=== PATIENT | male | born 1970 ===

== ENCOUNTER 2017-08-27 07:19 | Day surgery (SDC) | payer MEDICARE ==
[2017-08-27 07:41] VITALS: BMI 30.7
[2017-08-27] MEDS ORDERED: Propofol 10 mg/ml Inj (20 ML) ONE (08:53)
[2017-08-27] MEDS ORDERED: Lidocaine Hydrochloride 5 ML INJ ONE (08:53)
--- NOTE | 2017-08-27 08:55 | CP.SDSHP ---
Same Day Surgery H & P - History Proposed Procedure: EGD Pre-Op Diagnosis: SEE NOTES - Previous Medical/Surgical History Neuro: Seizure Disorder, Other Misc: Other Pain: 6.Severe Pain - Allergies Allergies: Allergies No Known Allergies Allergy (Verified 08/20/17 10:31) - Physical Exam General Appearance: N Vital Signs: Vital Signs 08/27/17 07:48 Temperature 97.8 F Pulse Rate 80 Respiratory 16 Rate Blood Pressure 119/73 O2 Sat by Pulse 98 Oximetry Mental Status: Alert & Oriented x3 Neuro: WNL Heart: WNL Lungs: WNL GI: WNL - {Optional Preform as Required} Breast: WNL Abdomen: Other Rectal: Other Integument: WNL : WNL Ortho: Other ENT: WNL - Impression Pt. Evaluated Today:Candidate for Anesthesia & Procedure: Yes - Date & Time Time: 08:55 Short Stay Discharge - Short Stay Discharge Admitting Diagnosis/Reason for Visit: FUNCTIONAL DYSPEPSIA Disposition: HOME/ ROUTINE
[2017-08-27] MEDS ORDERED: Belladonna-Phenobarbital PO STA (09:03)
[2017-08-27] MEDS ORDERED: Pantoprazole 40 mg EC Tab PO STA (09:04)
[2017-08-27 09:20] VITALS: TEMP 97.3
[2017-08-27 09:26] VITALS: O2SAT 100
[2017-08-27 09:52] VITALS: BP 126/89; PULSE 70; RESP 12
== END 2017-08-27 10:10 | disposition home or self-care (01) ==
LOC: C.ENDO 07:19
PROVIDERS: ATTEND Specialist
DX: K29.80 Duodenitis without bleeding (principal); K44.9 Diaphragmatic hernia without obstruction or gangrene; K29.70 Gastritis, unspecified, without bleeding
CPT/HCPCS: 43239; 88305; 88342; J2704

== ENCOUNTER 2018-04-07 19:03 | Inpatient (IN) | payer MEDICARE ==
[2018-04-07 19:04] VITALS: BMI 30.7
--- NOTE | 2018-04-07 19:56 | C.PDOC ---
History Of Present Illness The patient presents to the ED for evaluation of back pain and fever which began after having a spinal cord stimulator replaced earlier today. Patient was found to be febrile with temperature of 101.5 in the ED. Patient complaining of feeling hot and experiencing discomfort. He denies extremity numbness/weakness. Time Seen by Provider: 04/07/18 19:55 Chief Complaint (Nursing): Back Pain History Per: Patient History/Exam Limitations: no limitations Onset/Duration Of Symptoms: Hrs Current Symptoms Are (Timing): Still Present Quality Of Discomfort: "Pain" Severity: Moderate Pain Scale Rating Of: 4 Previous Symptoms: Back Pain Associated Symptoms: denies: New Weakness, New Numbness Exacerbating Factor(s): Nothing Recent travel outside of the [place]: No Additional History Per: Patient Past Medical History Reviewed: Historical Data, Nursing Documentation, Vital Signs Vital Signs: Last Vital Signs Temp 100.9 F H 04/07/18 21:12 Pulse 75 04/07/18 21:12 Resp 12 04/07/18 21:12 BP 126/77 04/07/18 21:12 Pulse Ox 99 04/07/18 21:12 - Medical History PMH: Anxiety, Back Problems, Bipolar Disorder, Depression, Gall Bladder Disease (CHOLECYSTECTOMY), Kidney Stones (with Lithotripsy), Seizures Denies: Diabetes, Hepatitis, HIV, Chronic Kidney Disease, Sexually Transmitted Disease Surgical History: Back Surgery, Cholecystectomy, Endoscopy - [facility] Procedures EXCISE BONE FOR GFT NEC (04/05/14) EXCISION INTERVERT DISC (04/05/14) FUSION/REFUS OF 2-3 VERTEBRAE (04/05/14) INSERTION OF INTERBODY SPINAL FUSION DEVICE (04/05/14) LUMBAR & LUMBOSACRAL FUSION OF POSTERIOR COL/TECHNIQUE (04/05/14) OCCUPATIONAL THERAPY (04/08/14) PHYSICAL THERAPY NEC (07/13/14) RECREATIONAL THERAPY (04/08/14) SPINAL CANAL EXPLOR NEC (04/22/14) VITAL CAPACITY DETERMIN (04/08/14) Family History: States: No Known Family Hx - Social History Hx Alcohol Use: No Hx Substance Use: No Review Of Systems Constitutional: Positive for: Fever Eyes: Negative for: Redness ENT: Negative for: Throat Pain Cardiovascular: Negative for: Chest Pain, Palpitations Respiratory: Negative for: Cough, Shortness of Breath Gastrointestinal: Negative for: Nausea, Vomiting, Abdominal Pain Musculoskeletal: Positive for: Back Pain Skin: Positive for: Other (incission) Neurological: Negative for: Weakness, Numbness Psych: Negative for: Anxiety Physical Exam - Physical Exam Appears: Non-toxic, No Acute Distress Skin: Warm, Dry Head: Normacephalic Eye(s): bilateral: Normal Inspection Oral Mucosa: Dry Neck: Supple Chest: Symmetrical, No Deformity, No Tenderness Cardiovascular: Rhythm Regular, No Murmur Respiratory: No Rales, No Rhonchi, No Wheezing Gastrointestinal/Abdominal: Bowel Sounds (unremarkable ), Soft, No Tenderness, No Guarding, No Rebound Rectal: Other (incision site to lower thoracic region with minimal amount of bleeding surrouding site ) Extremity: Normal ROM Neurological/Psych: Oriented x3 ED Course And Treatment - Laboratory Results Result Diagrams: 04/07/18 20:25 04/07/18 20:25 O2 Sat by Pulse Oximetry: 100 (on RA) Pulse Ox Interpretation: Normal - Radiology CXR: Interpreted by Me, Viewed By Me CXR Interpretation: No: Infiltrates, Fracture, Pnemothorax Progress Note: Bloodwork, urinalysis, CXR ordered and reviewed. IV Fluids administered. Disposition Discussed With : Homar Aly Comment: accepted the pt on his service and took over the care at 10PM Doctor Will See Patient In The: Hospital Counseled Patient/Family Regarding: Studies Performed, Diagnosis - Disposition Disposition: HOSPITALIZED Disposition Time: 19:56 Condition: FAIR Forms: [facility] (Ecuadorean) - POA Present On Arrival: Surgical Site Infection - Clinical Impression Clinical Impression: Low back pain, Fever, Cellulitis of back - Scribe Statement The provider has reviewed the documentation as recorded by the Scribe (Dayami Trivedi) Provider Attestation: All medical record entries made by the Maria Fernandaibe were at my direction and personally dictated by me. I have reviewed the chart and agree that the record accurately reflects my personal performance of the history, physical exam, medical decision making, and the department course for this patient. I have also personally directed, reviewed, and agree with the discharge instructions and disposition. Decision To Admit - Pt Status Changed To: Hospital Disposition Of: Inpatient - Admit Certification Admit to Inpatient:: After my assessment, the patient will require hospitalization for at least two midnights. This is because of the severity of symptoms shown, intensity of services needed, and/or the medical risk in this patient being treated as an outpatient. - InPatient: Physician Admission Certification:: After my assessment, the patient will require hospitalization for at least two midnights. This is because of the severity of symptoms shown, intensity of services needed, and/or the medical risk in this patient being treated as an outpatient. - . Bed Request Type: Regular Admitting Physician: Homar Aly Patient Diagnosis: Low back pain, Fever, Cellulitis of back
[2018-04-07] MEDS ORDERED: Sodium Chloride 0.9% 1,000 ML IV ONE (20:02)
[2018-04-07] MEDS ORDERED: Sodium Chloride 0.9% 1,000 ML ONE (20:28)
[2018-04-07 20:31] LABS: BASO % 0.3 % (0.0-2.0); HEMOGLOBIN 13.9 g/dL (12.0-18.0); LYMPH % 10.7 % (20.0-40.0); MEAN CELL VOLUME 93.7 fL (80.0-94.0); MEAN CORPUSCULAR HEMOGLOBIN 31.4 pg (27.0-31.0); MEAN CORPUSCULAR HGB CONC 33.5 g/dL (33.0-37.0); MEAN PLATELET VOLUME 7.7 fL (7.2-11.7); MONO # 0.8 K/uL (0.0-0.8); MONO % 8.7 % (0.0-10.0); NEUT # 7.4 K/uL (1.8-7.0); NEUT % 80.3 % (50.0-75.0); RBC 4.42 Mil/uL (4.40-5.90); RED CELL DISTRIBUTION WIDTH 14.2 % (11.5-14.5); WHITE BLOOD COUNT 9.2 K/uL (4.8-10.8)
[2018-04-07 20:33] LABS: VENOUS BLOOD GAS PCO2 49 mmHg (40-60); VENOUS BLOOD GAS PO2 18 mm/Hg (30-55); VENOUS BLOOD PH 7.38 (7.32-7.43)
[2018-04-07 20:44] LABS: ALB/GLOB RATIO 1.3 (1.0-2.1); ALBUMIN 4.1 g/dL (3.5-5.0); ALT/SGPT 76 U/L (21-72); AST/SGOT 79 U/L (17-59); BLOOD UREA NITROGEN 8 mg/dL (9-20); CALCIUM 8.7 mg/dl (8.6-10.4); GFR AFRICAN-AMERICAN > 60; GFR NON-AFRICAN AMERICAN > 60
[2018-04-07 21:21] LABS: PROTHROMBIN TIME 11.2 SECONDS (9.7-12.2)
[2018-04-07 21:33] LABS: URINE BILIRUBIN NEGATIVE (NEGATIVE); URINE BLOOD NEGATIVE (NEGATIVE); URINE CLARITY Clear (Clear); URINE COLOR Yellow (YELLOW); URINE GLUCOSE (UA) NORMAL (Normal); URINE LEUKOCYTE ESTERASE NEG Leu/uL (Negative); URINE PROTEIN NEGATIVE (NEGATIVE); URINE UROBILINOGEN NORMAL mg/dL (0.2-1.0)
[2018-04-07] MEDS ORDERED: Piperacillin/Tazobact 3.375 GM in Sodium Chloride 100 ML IVPB SCH (22:15)
[2018-04-07] MEDS ORDERED: Home Med 1 UNIT (Oxycodone Hcl/Acetaminophen [Percocet 10-325 Mg Tablet] 1 EACH) PO PRN (22:21)
[2018-04-07] MEDS ORDERED: TRAZODONE HCL 150 MG PO SCH (22:30)
[2018-04-07] MEDS ORDERED: Home Med 1 UNIT (Zolpidem [Ambien] 10 MG) PO SCH (22:30)
[2018-04-07] MEDS ORDERED: LEVETIRACETAM 1000 MG PO SCH (22:30)
[2018-04-07] MEDS ORDERED: QUETIAPINE FUMARATE 400 MG PO SCH (22:30)
[2018-04-07] MEDS ORDERED: Vancomycin 1 gm/NS 200 ml 1 GM/200 ML BAG IVPB SCH (23:15)
[2018-04-08] MEDS: Vancomycin 1 gm/NS 200 ml 1 GM/200 ML BAG IVPB SCH ×4 (01:00→22:55)
[2018-04-08] MEDS: Piperacill/Tazo 3.375gm in Dex 3.375 GM/50 ML BAG IVPB SCH ×4 (05:20→22:59)
[2018-04-08] MEDS ORDERED: Oxycodone/Acetaminophen 5/325 mg Tab PO ONE ×2 (05:33→05:35)
[2018-04-08 08:23] LABS: BASO % 0.1 % (0.0-2.0); EOS % 0.1 % (0.0-4.0); HEMOGLOBIN 12.4 g/dL (12.0-18.0); LYMPH # 1.1 K/uL (1.0-4.3); LYMPH % 17.7 % (20.0-40.0); MEAN CELL VOLUME 93.7 fL (80.0-94.0); MEAN CORPUSCULAR HEMOGLOBIN 32.2 pg (27.0-31.0); MEAN CORPUSCULAR HGB CONC 34.4 g/dL (33.0-37.0); MEAN PLATELET VOLUME 8.2 fL (7.2-11.7); MONO # 0.7 K/uL (0.0-0.8); MONO % 12.4 % (0.0-10.0); NEUT # 4.2 K/uL (1.8-7.0); NEUT % 69.7 % (50.0-75.0); RBC 3.84 Mil/uL (4.40-5.90); RED CELL DISTRIBUTION WIDTH 14.4 % (11.5-14.5)
[2018-04-08 08:47] LABS: ALB/GLOB RATIO 1.1 (1.0-2.1); ALBUMIN 3.2 g/dL (3.5-5.0); ALT/SGPT 57 U/L (21-72); AST/SGOT 40 U/L (17-59); BLOOD UREA NITROGEN 5 mg/dL (9-20); GFR AFRICAN-AMERICAN > 60; GFR NON-AFRICAN AMERICAN > 60
[2018-04-08] MEDS ORDERED: Home Med 1 UNIT (Alprazolam [Xanax] 2 MG) PO SCH (10:00)
[2018-04-08] MEDS: oxyCODONE 5 mg Immediate Release Tab PO PRN (10:36)
[2018-04-08] MEDS: Pantoprazole 40 mg EC Tab PO SCH (10:38)
[2018-04-08] MEDS: Oxycodone/Acetaminophen 5/325 mg Tab PO PRN (10:38)
--- NOTE | 2018-04-08 10:55 | CP.PCM.CON ---
History of Present Illness - History of Present Illness History of Present Illness: The patient presents to the ED for evaluation of back pain and fever which began after having a spinal cord stimulator replaced yesterday as out patient . Patient was found to be febrile with temperature of 101.5 in the ED. Patient complaining of feeling hot and experiencing discomfort. He denies extremity numbness/weakness. Review of Systems - Review of Systems All systems: reviewed and no additional remarkable complaints except - Constitutional Constitutional: As Per HPI - EENT Eyes: absent: As Per HPI, Blind Spots, Blurred Vision, Change in Vision, Decreased Night Vision, Diplopia, Discharge, Dry Eye, Exophthalmos, Floaters, Irritation, Itchy Eyes, Loss of Peripheral Vision, Pain, Photophobia, Requires Corrective Lenses, Sees Flashes, Spots in Vision, Tunnel Vision, Other Visual Disturbances, Loss of Vision, Other Ears: absent: As Per HPI, Decreased Hearing, Ear Discharge, Ear Pain, Tinnitus, Abnormal Hearing, Disequilibrium, Dizziness, Other Nose/Mouth/Throat: absent: As Per HPI, Epistaxis, Nasal Congestion, Nasal Discharge, Nasal Obstruction, Nasal Trauma, Nose Pain, Post Nasal Drip, Sinus Pain, Sinus Pressure, Bleeding Gums, Change in Voice, Dental Pain, Dry Mouth, Dysphagia, Halitosis, Hoarsness, Lip Swelling, Mouth Lesions, Mouth Pain, Odynophagia, Sore Throat, Throat Swelling, Tongue Swelling, Facial Pain, Neck Pain, Neck Mass, Other - Cardiovascular Cardiovascular: absent: As Per HPI, Acrocyanosis, Chest Pain, Chest Pain at Rest , Chest Pain with Activity, Claudication, Diaphoresis, Dyspnea, Dyspnea on Exertion, Edema, Irregular Heart Rhythm, Pain Radiating to Arm/Neck/Jaw, Leg Edema, Leg Ulcers, Lightheadedness, Orthopnea, Palpitations, Paroxysmal Nocturnal Dyspnea, Pedal Edema, Radiating Pain, Rapid Heart Rate, Slow Heart Rate, Syncope, Other - Respiratory Respiratory: absent: As Per HPI, Cough, Dyspnea, Hemoptysis, Dyspnea on Exertion , Wheezing, Snoring, Stridor, Pain on Inspiration, Chest Congestion, Excessive Mucous Production, Change in Mucous Color, Pain with Coughing, Other - Gastrointestinal Gastrointestinal: absent: As Per HPI, Abdominal Pain, Belching, Bloating, Change in Bowel Habits, Change in Stool Character, Coffee Ground Emesis, Constipation, Cramping, Diarrhea, Dyspepsia, Dysphagia, Early Satiety, Excessive Flatus, Fecal Incontinence, Heartburn, Hematemesis, Hematochezia, Loose Stools, Melena, Nausea, Odynophagia, Temesmus, Vomiting, Other - Genitourinary Genitourinary: absent: As Per HPI, Change in Urinary Stream, Difficulty Urinating, Dysuria, Flank Pain, Hematuria, Pyuria, Nocturia, Urinary Incontinence, Urinary Frequency, Urinary Hesitance, Urinary Urgency, Voiding Freq/Small Amts, Freq UTI, Hx Renal/Bladder Calculi, Hx /Renal Surgery, Bladder Distension, Other - Musculoskeletal Musculoskeletal: As Per HPI - Integumentary Integumentary: As Per HPI - Neurological Neurological: As Per HPI - Psychiatric Psychiatric: absent: As Per HPI, Abnormal Sleep Pattern, Anhedonia, Anxiety, Auditory Hallucinations, Behavioral Changes, Change in Appetite, Change in Libido, Confusion, Depression, Difficulty Concentrating, Hallucinations, Homicidal Ideation, Hopelessness, Irritability, Memory Loss, Mood Swings, Panic Attacks, Paranoia, Suicidal Ideation, Visual Hallucinations, Tactile Hallucinations, Other - Endocrine Endocrine: absent: As Per HPI, Change in Body Appearance, Change in Libido, Cold Intolorance, Deepening of Voice, Excessive Sweating, Fatigue, Flushing, Heat Intolorance, Increase in Ring/Shoe/Hat Size, Palpitations, Polydipsia, Polyphagia, Polyuria, Other - Hematologic/Lymphatic Hematologic: absent: As Per HPI, Easy Bleeding, Easy Bruising, Lymphadenopathy, Other Past Patient History - Past Medical History & Family History Past Medical History?: Yes - Past Social History Smoking Status: n - CARDIAC Hx Cardiac Disorders: No - PULMONARY Hx Respiratory Disorders: No - NEUROLOGICAL Hx Neurological Disorder: Yes Hx Seizures: Yes - HEENT Hx HEENT Problems: No - RENAL Hx Chronic Kidney Disease: No Hx Kidney Stones: Yes (with Lithotripsy) - ENDOCRINE/METABOLIC Hx Endocrine Disorders: No - HEMATOLOGICAL/ONCOLOGICAL Hx Blood Disorders: No Hx Human Immunodeficiency Virus (HIV): No - INTEGUMENTARY Hx Dermatological Problems: No - MUSCULOSKELETAL/RHEUMATOLOGICAL Hx Musculoskeletal Disorders: Yes Hx Back Pain: Yes (SPINAL FUSION & SPINAL CORD STIMULATOR, CONTINUOS WITH MEDS) Hx Falls: No - GASTROINTESTINAL Hx Gastrointestinal Disorders: Yes Hx Gall Bladder Disease: Yes (CHOLECYSTECTOMY) - GENITOURINARY/GYNECOLOGICAL Hx Genitourinary Disorders: No Hx Sexually Transmitted Disorders: No - PSYCHIATRIC Hx Psychophysiologic Disorder: Yes Hx Anxiety: Yes Hx Bipolar Disorder: Yes Hx Depression: Yes Hx Substance Use: No - SURGICAL HISTORY Hx Surgeries: Yes Hx Cholecystectomy: Yes Other/Comment: Spinal fusion and spinal cord stimulator - ANESTHESIA Hx Anesthesia: Yes Hx Anesthesia Reactions: No Hx Malignant Hyperthermia: No Meds Allergies/Adverse Reactions: Allergies Allergy/AdvReac Type Severity Reaction Status Date / Time No Known Allergies Allergy Verified 08/20/17 10:31 - Medications Medications: Current Medications Acetaminophen (Tylenol 325mg Tab) 650 mg PO Q6 PRN PRN Reason: Temperature Last Admin: 04/08/18 03:57 Dose: 650 mg Alprazolam (Xanax) 2 mg PO TID [facility] Last Admin: 04/08/18 10:35 Dose: 2 mg Piperacillin Sod/Tazobactam Sod (Zosyn 3.375 Gm Iv Premix) 3.375 gm in 50 mls @ 100 mls/hr IVPB Q6H BHAVNA PRN Reason: Protocol Last Admin: 04/08/18 05:20 Dose: 100 mls/hr Cefepime HCl 1 gm/ Dextrose 50 mls @ 100 mls/hr IVPB Q12H BHAVNA PRN Reason: Protocol Last Admin: 04/08/18 00:30 Dose: 100 mls/hr Vancomycin/Sodium Chloride (Vancomycin 1 Gm/Ns 200 Ml) 1 gm in 200 mls @ 133.333 mls/hr IVPB Q8 BHAVNA PRN Reason: Protocol Stop: 04/13/18 06:01 Last Admin: 04/08/18 05:20 Dose: 133.333 mls/hr Levetiracetam (Keppra) 1,000 mg PO BID [facility] Last Admin: 04/08/18 10:39 Dose: 1,000 mg Oxycodone HCl (Oxycodone Immediate Release Tab) 5 mg PO Q8 PRN PRN Reason: Pain, moderate (4-7) Last Admin: 04/08/18 10:36 Dose: 5 mg Oxycodone/Acetaminophen (Percocet 5/325 Mg Tab) 1 tab PO Q8 PRN PRN Reason: Pain, moderate (4-7) Last Admin: 04/08/18 10:38 Dose: 1 tab Pantoprazole Sodium (Protonix Ec Tab) 40 mg PO DAILY [facility] Last Admin: 04/08/18 10:38 Dose: 40 mg Phenytoin Sodium (Dilantin) 200 mg PO BID [facility] Last Admin: 04/08/18 10:39 Dose: 200 mg Quetiapine Fumarate (Seroquel) 400 mg PO BID [facility] Last Admin: 04/08/18 10:36 Dose: 400 mg Trazodone HCl (Desyrel) 150 mg PO [facility] Last Admin: 04/08/18 02:04 Dose: 150 mg Zolpidem Tartrate (Ambien) 10 mg PO [facility] Physical Exam - Constitutional Appears: Non-toxic, Chronically Ill - Head Exam Head Exam: ATRAUMATIC, NORMAL INSPECTION, NORMOCEPHALIC - Eye Exam Eye Exam: EOMI, PERRL. absent: Scleral icterus - ENT Exam ENT Exam: Mucous Membranes Dry - Neck Exam Neck exam: Negative for: Lymphadenopathy - Respiratory Exam Respiratory Exam: Decreased Breath Sounds, Clear to Auscultation Bilateral - Cardiovascular Exam Cardiovascular Exam: REGULAR RHYTHM, +S1, +S2 - GI/Abdominal Exam GI & Abdominal Exam: Diminished Bowel Sounds, Soft. absent: Tenderness - Rectal Exam Rectal Exam: Deferred - Exam Exam: NORMAL INSPECTION - Extremities Exam Extremities exam: Negative for: pedal edema - Back Exam Back exam: absent: CVA tenderness (L), CVA tenderness (R) - Neurological Exam Neurological exam: Alert, CN II-XII Intact, Oriented x3, Reflexes Normal - Psychiatric Exam Psychiatric exam: Depressed, Normal Mood - Skin Skin Exam: Dry, Intact Results - Vital Signs Recent Vital Signs: Last Vital Signs Temp 98.8 F 04/08/18 07:40 Pulse 80 04/08/18 07:40 Resp 20 04/08/18 07:40 BP 110/72 04/08/18 07:40 Pulse Ox 96 04/08/18 07:40 - Labs Result Diagrams: 04/08/18 08:05 04/08/18 08:05 Labs: Laboratory Results - last 24 hr 04/07/18 04/07/18 04/07/18 20:25 20:25 20:25 WBC 9.2 RBC 4.42 Hgb 13.9 Hct 41.4 MCV 93.7 MCH 31.4 H MCHC 33.5 RDW 14.2 Plt Count 242 MPV 7.7 Neut % (Auto) 80.3 H Lymph % (Auto) 10.7 L [place] % (Auto) 8.7 Eos % (Auto) 0.0 Baso % (Auto) 0.3 Neut # (Auto) 7.4 H Lymph # (Auto) 1.0 [place] # (Auto) 0.8 Eos # (Auto) 0.0 Baso # (Auto) 0.0 PT 11.2 INR 1.0 APTT 29 pO2 VBG pH VBG pCO2 VBG HCO3 VBG Total CO2 VBG O2 Sat (Calc) VBG Base Excess VBG Potassium Glucose Lactate Sodium 139 Potassium 4.0 Chloride 100 Carbon Dioxide 31 H Anion Gap 13 BUN 8 L Creatinine 0.7 L Est GFR ( Amer) > 60 Est GFR (Non-Af Amer) > 60 Random Glucose 102 Calcium 8.7 Magnesium 1.5 L Total Bilirubin 1.0 AST 79 H D ALT 76 H Alkaline Phosphatase 82 Total Protein 7.2 Albumin 4.1 Globulin 3.2 Albumin/Globulin Ratio 1.3 Venous Blood Potassium Urine Color Urine Clarity Urine pH Ur Specific [place] Urine Protein Urine Glucose (UA) Urine Ketones Urine Blood Urine Nitrate Urine Bilirubin Urine Urobilinogen Ur Leukocyte Esterase Urine WBC (Auto) Urine RBC (Auto) 04/07/18 04/07/18 04/08/18 20:29 21:17 08:05 WBC 6.0 RBC 3.84 L Hgb 12.4 Hct 36.0 MCV 93.7 MCH 32.2 H MCHC 34.4 RDW 14.4 Plt Count 227 MPV 8.2 Neut % (Auto) 69.7 Lymph % (Auto) 17.7 L [place] % (Auto) 12.4 H Eos % (Auto) 0.1 Baso % (Auto) 0.1 Neut # (Auto) 4.2 Lymph # (Auto) 1.1 [place] # (Auto) 0.7 Eos # (Auto) 0.0 Baso # (Auto) 0.0 PT INR APTT pO2 18 L VBG pH 7.38 VBG pCO2 49 VBG HCO3 25.3 VBG Total CO2 30.5 H VBG O2 Sat (Calc) 32.9 L VBG Base Excess 3.0 H VBG Potassium 5.1 Glucose 90 Lactate 2.0 Sodium 138.0 Potassium Chloride 105.0 Carbon Dioxide Anion Gap BUN Creatinine Est GFR ( Amer) Est GFR (Non-Af Amer) Random Glucose Calcium Magnesium Total Bilirubin AST ALT Alkaline Phosphatase Total Protein Albumin Globulin Albumin/Globulin Ratio Venous Blood Potassium 5.1 Urine Color Yellow Urine Clarity Clear Urine pH 6.0 Ur Specific [place] 1.021 Urine Protein Negative Urine Glucose (UA) Normal Urine Ketones Negative Urine Blood Negative Urine Nitrate Negative Urine Bilirubin Negative Urine Urobilinogen Normal Ur Leukocyte Esterase Neg Urine WBC (Auto) 1 Urine RBC (Auto) < 1 04/08/18 08:05 WBC RBC Hgb Hct MCV MCH MCHC RDW Plt Count MPV Neut % (Auto) Lymph % (Auto) [place] % (Auto) Eos % (Auto) Baso % (Auto) Neut # (Auto) Lymph # (Auto) [place] # (Auto) Eos # (Auto) Baso # (Auto) PT INR APTT pO2 VBG pH VBG pCO2 VBG HCO3 VBG Total CO2 VBG O2 Sat (Calc) VBG Base Excess VBG Potassium Glucose Lactate Sodium 137 Potassium 3.3 L Chloride 103 Carbon Dioxide 28 Anion Gap 10 BUN 5 L Creatinine 0.7 L Est GFR ( Amer) > 60 Est GFR (Non-Af Amer) > 60 Random Glucose 104 Calcium 8.0 L Magnesium Total Bilirubin 0.9 AST 40 ALT 57 Alkaline Phosphatase 68 Total Protein 6.1 L Albumin 3.2 L D Globulin 2.9 Albumin/Globulin Ratio 1.1 Venous Blood Potassium Urine Color Urine Clarity Urine pH Ur Specific [place] Urine Protein Urine Glucose (UA) Urine Ketones Urine Blood Urine Nitrate Urine Bilirubin Urine Urobilinogen Ur Leukocyte Esterase Urine WBC (Auto) Urine RBC (Auto) Assessment & Plan (1) Cellulitis of back Status: Acute (2) Fever Status: Acute (3) Low back pain Status: Acute - Assessment and Plan (Free Text) Assessment: fever and headache s/p nerve stimulator placement recc eval by surgeon ELLEN consider LP wound care consult IV antibiotics to cover [employer]
--- NOTE | 2018-04-08 11:56 | RAD ---
PROCEDURE: CHEST RADIOGRAPH, 1 VIEW HISTORY: SOB COMPARISON: None available. FINDINGS: LUNGS: Clear. PLEURA: No pneumothorax or pleural fluid seen. CARDIOVASCULAR: No radiographic findings to suggest acute or significant cardiovascular disease. OSSEOUS STRUCTURES: No significant abnormalities. VISUALIZED UPPER ABDOMEN: Normal. OTHER FINDINGS: Incompletely visualized stimulator device IMPRESSION: No active disease. Concordant results with the preliminary interpretation rendered by the emergency department physician procedure.
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
[2018-04-08] MEDS ORDERED: Cefepime IV 2 gm in Dextrose 2 GM/100 ML BAG IVPB SCH (13:00)
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
[2018-04-08] MEDS: Cefepime IV 2 gm in Dextrose 2 GM/100 ML BAG IVPB SCH (16:52)
[2018-04-08] MEDS ORDERED: Oxycodone/Acetaminophen 5/325 mg Tab PO STA (18:16)
[2018-04-08] MEDS: Dextrose 5%/0.45% NS 1,000 ML IV SCH (18:24)
[2018-04-09] MEDS ORDERED: Potassium Chloride 20 mEq ER Tab PO ONE ×2 (00:36→23:51)
[2018-04-09] MEDS: Cefepime IV 2 gm in Dextrose 2 GM/100 ML BAG IVPB SCH ×3 (00:59→16:31)
[2018-04-09] MEDS: Oxycodone/Acetaminophen 5/325 mg Tab PO PRN ×3 (01:55→16:25)
[2018-04-09] MEDS: Piperacill/Tazo 3.375gm in Dex 3.375 GM/50 ML BAG IVPB SCH ×2 (04:30→11:55)
[2018-04-09 06:29] LABS: ALBUMIN 3.1 g/dL (3.5-5.0); ALT/SGPT 34 U/L (21-72); AST/SGOT 30 U/L (17-59); BLOOD UREA NITROGEN 8 mg/dL (9-20); CALCIUM 7.9 mg/dl (8.6-10.4); GFR AFRICAN-AMERICAN > 60; GFR NON-AFRICAN AMERICAN > 60
[2018-04-09] MEDS: Vancomycin 1 gm/NS 200 ml 1 GM/200 ML BAG IVPB SCH ×3 (06:55→22:02)
--- NOTE | 2018-04-09 07:10 | CP.PCM.PN ---
Subjective - Date & Time of Evaluation Date of Evaluation: 04/09/18 Time of Evaluation: 09:05 - Subjective Subjective: PGY 3 Med Note- Dr. Aly's service Patient seen and examined in no apparent acute distress. Patient states that he still has back pain associated with the procedure. He states that he has decreased strength on his right side; however so, notes that this is not a new occurrence. Objective - Vital Signs/Intake and Output Vital Signs (last 24 hours): Temp Pulse Resp BP Pulse Ox 98.5 F 82 18 96/60 L 96 04/09/18 04:00 04/09/18 04:00 04/09/18 04:00 04/09/18 04:00 04/09/18 04:00 Intake and Output: 04/09/18 04/09/18 06:59 18:59 Intake Total 1200 Balance 1200 - Medications Medications: Current Medications Acetaminophen (Tylenol 325mg Tab) 650 mg PO Q6 PRN PRN Reason: Temperature Last Admin: 04/08/18 03:57 Dose: 650 mg Alprazolam (Xanax) 2 mg PO TID [facility] Last Admin: 04/08/18 18:07 Dose: 2 mg Piperacillin Sod/Tazobactam Sod (Zosyn 3.375 Gm Iv Premix) 3.375 gm in 50 mls @ 100 mls/hr IVPB Q6H BHAVNA PRN Reason: Protocol Last Admin: 04/09/18 04:30 Dose: 100 mls/hr Vancomycin/Sodium Chloride (Vancomycin 1 Gm/Ns 200 Ml) 1 gm in 200 mls @ 133.333 mls/hr IVPB Q8 BHAVNA PRN Reason: Protocol Stop: 04/13/18 06:01 Last Admin: 04/08/18 22:55 Dose: 133.333 mls/hr Cefepime HCl (Maxipime Iv 2 Gm Premix) 2 gm in 100 mls @ 200 mls/hr IVPB Q8H BHAVNA PRN Reason: Protocol Stop: 04/13/18 16:01 Last Admin: 04/09/18 00:59 Dose: 200 mls/hr Dextrose/Sodium Chloride (Dextrose 5%/0.45% Ns 1000 Ml) 1,000 mls @ 100 mls/hr IV .Q10H [facility] Last Admin: 04/08/18 18:24 Dose: 100 mls/hr Levetiracetam (Keppra) 1,000 mg PO BID [facility] Last Admin: 04/08/18 18:05 Dose: 1,000 mg Oxycodone HCl (Oxycodone Immediate Release Tab) 5 mg PO Q8 PRN PRN Reason: Pain, moderate (4-7) Last Admin: 04/08/18 10:36 Dose: 5 mg Oxycodone/Acetaminophen (Percocet 5/325 Mg Tab) 1 tab PO Q8 PRN PRN Reason: Pain, moderate (4-7) Last Admin: 04/09/18 01:55 Dose: 1 tab Pantoprazole Sodium (Protonix Ec Tab) 40 mg PO DAILY [facility] Last Admin: 04/08/18 10:38 Dose: 40 mg Phenytoin Sodium (Dilantin) 200 mg PO BID [facility] Last Admin: 04/08/18 18:05 Dose: 200 mg Quetiapine Fumarate (Seroquel) 400 mg PO BID [facility] Last Admin: 04/08/18 18:07 Dose: 400 mg Trazodone HCl (Desyrel) 150 mg PO HS [facility] Last Admin: 04/08/18 22:55 Dose: 150 mg Zolpidem Tartrate (Ambien) 5 mg PO HS PRN PRN Reason: Insomnia - Labs Labs: 04/08/18 08:05 04/09/18 06:08 PT 11.2 SECONDS (9.7-12.2) 04/07/18 20:25 INR 1.0 04/07/18 20:25 APTT 29 SECONDS (21-34) 04/07/18 20:25 - Constitutional Appears: Non-toxic, No Acute Distress - Head Exam Head Exam: ATRAUMATIC, NORMAL INSPECTION - Eye Exam Eye Exam: EOMI - ENT Exam ENT Exam: Mucous Membranes Moist - Respiratory Exam Respiratory Exam: NORMAL BREATHING PATTERN - Cardiovascular Exam Cardiovascular Exam: REGULAR RHYTHM, +S1, +S2 - GI/Abdominal Exam GI & Abdominal Exam: Soft, Normal Bowel Sounds - Extremities Exam Extremities Exam: Normal Capillary Refill. absent: Pedal Edema Additional comments: dec abduction of the right lower extremity - Neurological Exam Neurological Exam: Alert, Awake Neuro motor strength exam: Left Upper Extremity: 5, Right Upper Extremity: 5, Left Lower Extremity: 5, Right Lower Extremity: 4 - Psychiatric Exam Psychiatric exam: Normal Affect, Normal Mood - Skin Skin Exam: Dry, Normal Color, Warm Assessment and Plan - Assessment and Plan (Free Text) Assessment: CSF leak Patient POD#2 s/p nerve stimulator exchange with Dr. Noel Per attending's discussion with Dr. Noel, patient likely had CSF leak and bed rest recommended Pt seen by ID, Dr. Marr, to cover with zosyn, cefepime, vancomycin for CORE STICKER infection Florastor on board Chronic low back pain Patient has had multiple surgeries in the past Pt takes Percocet 10/325 at home- non-formulary here continue equivalent percocet 5/325 + oxycodone 5mg Epilepsy Continue home meds: keppra 1000mg PO BID, dilantin 200mg PO BID Bipolar disorder Continue home med seroquel 400mg PO BID Anxiety Continue home med xanax 2mg PO TID Trazodone 150mg PO HS Insomnia Ambien 5mg PO HS prn Prophylactic measure PPI daily Chemical anticoagulation and SCDs contraindicated in light of recent spinal surgery Discussed with attending. All medical management as per Dr. Aly
[2018-04-09 07:32] LABS: BASO % 0.3 % (0.0-2.0); EOS % 0.6 % (0.0-4.0); HEMOGLOBIN 12.9 g/dL (12.0-18.0); LYMPH # 1.1 K/uL (1.0-4.3); LYMPH % 17.8 % (20.0-40.0); MEAN CELL VOLUME 94.7 fL (80.0-94.0); MEAN CORPUSCULAR HEMOGLOBIN 32.4 pg (27.0-31.0); MEAN CORPUSCULAR HGB CONC 34.3 g/dL (33.0-37.0); MEAN PLATELET VOLUME 8.1 fL (7.2-11.7); MONO # 0.8 K/uL (0.0-0.8); NEUT # 4.3 K/uL (1.8-7.0); NEUT % 68.3 % (50.0-75.0); NRBC % 0.1 % (0.0-2.0); RBC 3.97 Mil/uL (4.40-5.90); RED CELL DISTRIBUTION WIDTH 14.3 % (11.5-14.5); WHITE BLOOD COUNT 6.3 K/uL (4.8-10.8)
[2018-04-09 08:31] VITALS: RESP 20
[2018-04-09] MEDS: oxyCODONE 5 mg Immediate Release Tab PO PRN ×2 (08:31→16:12)
[2018-04-09] MEDS: Saccharomyces Boulardi 250 mg Cap PO SCH ×2 (10:08→19:18)
[2018-04-09] MEDS: Pantoprazole 40 mg EC Tab PO SCH (10:09)
--- NOTE | 2018-04-09 10:25 | HP ---
HISTORY OF PRESENT ILLNESS: The patient is a 47-year-old male with complaint of back pain, status post multiple surgeries and spinal cord stimulator which was removed from [facility] . The patient came with headache, fever. Patient came to the ER and advised admission. The patient has history of bypass surgery, history of multiple abdominal surgeries . PHYSICAL EXAMINATION: GENERAL: The patient is awake, alert, and oriented. VITAL SIGNS: Temperature 98, pulse 90. HEENT: Within normal limits. NECK: Supple. CHEST: Symmetrical. HEART: Regular. ABDOMEN: Soft. EXTREMITIES: No edema. IMPRESSION: . Patient suffers from spinal cord stimulator, fever, ____, cellulitis. The patient is on IV antibiotics, Infectious Disease consult. Call was made to Dr. Noel pain medicine doctor to discuss with him the case, exact procedure done. Homar Aly MD
--- NOTE | 2018-04-09 13:42 | CP.PCM.PN ---
Subjective - Date & Time of Evaluation Date of Evaluation: 04/09/18 Time of Evaluation: 08:00 - Subjective Subjective: cultures neg fever less for surg eval cont iv antibiotics Objective - Vital Signs/Intake and Output Vital Signs (last 24 hours): Temp Pulse Resp BP Pulse Ox 97.9 F 76 20 126/84 99 04/09/18 08:30 04/09/18 08:30 04/09/18 08:30 04/09/18 08:30 04/09/18 08:30 Intake and Output: 04/09/18 04/09/18 06:59 18:59 Intake Total 2410 Output Total 600 Balance 1810 - Medications Medications: Current Medications Acetaminophen (Tylenol 325mg Tab) 650 mg PO Q6 PRN PRN Reason: Temperature Last Admin: 04/08/18 03:57 Dose: 650 mg Alprazolam (Xanax) 2 mg PO TID [facility] Last Admin: 04/09/18 10:08 Dose: 2 mg Piperacillin Sod/Tazobactam Sod (Zosyn 3.375 Gm Iv Premix) 3.375 gm in 50 mls @ 100 mls/hr IVPB Q6H BHAVNA PRN Reason: Protocol Last Admin: 04/09/18 11:55 Dose: 100 mls/hr Vancomycin/Sodium Chloride (Vancomycin 1 Gm/Ns 200 Ml) 1 gm in 200 mls @ 133.333 mls/hr IVPB Q8 BHAVNA PRN Reason: Protocol Stop: 04/13/18 06:01 Last Admin: 04/09/18 06:55 Dose: 133.333 mls/hr Cefepime HCl (Maxipime Iv 2 Gm Premix) 2 gm in 100 mls @ 200 mls/hr IVPB Q8H BHAVNA PRN Reason: Protocol Stop: 04/13/18 16:01 Last Admin: 04/09/18 10:08 Dose: 200 mls/hr Dextrose/Sodium Chloride (Dextrose 5%/0.45% Ns 1000 Ml) 1,000 mls @ 100 mls/hr IV .Q10H [facility] Last Admin: 04/08/18 18:24 Dose: 100 mls/hr Levetiracetam (Keppra) 1,000 mg PO BID [facility] Last Admin: 04/09/18 10:08 Dose: 1,000 mg Oxycodone HCl (Oxycodone Immediate Release Tab) 5 mg PO Q8 PRN PRN Reason: Pain, moderate (4-7) Oxycodone/Acetaminophen (Percocet 5/325 Mg Tab) 1 tab PO Q8 PRN PRN Reason: Pain, moderate (4-7) Pantoprazole Sodium (Protonix Ec Tab) 40 mg PO DAILY [facility] Last Admin: 04/09/18 10:09 Dose: 40 mg Phenytoin Sodium (Dilantin) 200 mg PO BID [facility] Last Admin: 04/09/18 10:09 Dose: 200 mg Quetiapine Fumarate (Seroquel) 400 mg PO BID [facility] Last Admin: 04/08/18 18:07 Dose: 400 mg Saccharomyces Boulardii (Florastor) 250 mg PO BID [facility] Last Admin: 04/09/18 10:08 Dose: 250 mg Trazodone HCl (Desyrel) 150 mg PO HS [facility] Last Admin: 04/08/18 22:55 Dose: 150 mg Zolpidem Tartrate (Ambien) 5 mg PO HS PRN PRN Reason: Insomnia - Labs Labs: 04/09/18 07:22 04/09/18 06:08 PT 11.2 SECONDS (9.7-12.2) 04/07/18 20:25 INR 1.0 04/07/18 20:25 APTT 29 SECONDS (21-34) 04/07/18 20:25 - Constitutional Appears: Non-toxic, Chronically Ill - Head Exam Head Exam: NORMOCEPHALIC - Eye Exam Eye Exam: PERRL - ENT Exam ENT Exam: Mucous Membranes Dry - Neck Exam Neck Exam: absent: Lymphadenopathy - Respiratory Exam Respiratory Exam: Decreased Breath Sounds - Cardiovascular Exam Cardiovascular Exam: REGULAR RHYTHM - GI/Abdominal Exam GI & Abdominal Exam: Distended - Rectal Exam Rectal Exam: Deferred - Exam Exam: NORMAL INSPECTION - Extremities Exam Extremities Exam: absent: Pedal Edema - Back Exam Back Exam: absent: CVA tenderness (L), CVA tenderness (R) - Neurological Exam Neurological Exam: Alert, Awake, Oriented x3 - Psychiatric Exam Psychiatric exam: Depressed - Skin Skin Exam: Dry Assessment and Plan (1) Cellulitis of back Status: Acute (2) Fever Status: Acute (3) Low back pain Status: Acute - Assessment and Plan (Free Text) Assessment: cont iv rx
[2018-04-09] MEDS: Dextrose 5%/0.45% NS 1,000 ML IV SCH (15:46)
[2018-04-10] MEDS: Cefepime IV 2 gm in Dextrose 2 GM/100 ML BAG IVPB SCH ×2 (00:09→08:33)
[2018-04-10] MEDS: Oxycodone/Acetaminophen 5/325 mg Tab PO PRN ×2 (00:21→09:46)
[2018-04-10] MEDS: oxyCODONE 5 mg Immediate Release Tab PO PRN ×2 (00:22→09:48)
[2018-04-10] MEDS: Dextrose 5%/0.45% NS 1,000 ML IV SCH ×2 (05:59→10:30)
[2018-04-10 06:20] LABS: BASO % 0.3 % (0.0-2.0); HEMOGLOBIN 12.2 g/dL (12.0-18.0); LYMPH # 1.2 K/uL (1.0-4.3); LYMPH % 25.7 % (20.0-40.0); MEAN CELL VOLUME 94.8 fL (80.0-94.0); MEAN CORPUSCULAR HEMOGLOBIN 31.8 pg (27.0-31.0); MEAN CORPUSCULAR HGB CONC 33.6 g/dL (33.0-37.0); MEAN PLATELET VOLUME 8.3 fL (7.2-11.7); MONO # 0.7 K/uL (0.0-0.8); MONO % 14.6 % (0.0-10.0); NEUT # 2.8 K/uL (1.8-7.0); NEUT % 58.4 % (50.0-75.0); RBC 3.82 Mil/uL (4.40-5.90); RED CELL DISTRIBUTION WIDTH 14.3 % (11.5-14.5); WHITE BLOOD COUNT 4.8 K/uL (4.8-10.8)
[2018-04-10] MEDS: Vancomycin 1 gm/NS 200 ml 1 GM/200 ML BAG IVPB SCH ×2 (06:55→13:30)
[2018-04-10 07:25] LABS: BLOOD UREA NITROGEN 8 mg/dL (9-20); CALCIUM 8.1 mg/dl (8.6-10.4); GFR AFRICAN-AMERICAN > 60; GFR NON-AFRICAN AMERICAN > 60
--- NOTE | 2018-04-10 08:10 | CP.PCM.PN ---
Subjective - Date & Time of Evaluation Date of Evaluation: 04/10/18 Time of Evaluation: 08:00 - Subjective Subjective: PGY 3 Med Note- Dr. Aly's service Patient seen and examined in no apparent acute distress. Patient states that he still has back pain and pain own his leg associated with the procedure. He states that he has decreased strength on his right side; however so, notes that this is not a new occurrence. He was requesting more pain medications. He is tolerating diet and having normal bowel movements. No new complaints today. He states he has an appointment to follow up with his spinal surgeon on Saturday. Objective - Vital Signs/Intake and Output Vital Signs (last 24 hours): Temp Pulse Resp BP Pulse Ox 98.1 F 83 20 122/54 L 97 04/09/18 23:40 04/09/18 23:40 04/09/18 23:40 04/09/18 23:40 04/09/18 23:40 Intake and Output: 04/10/18 04/10/18 06:59 18:59 Intake Total 2520 Balance 2520 - Medications Medications: Current Medications Acetaminophen (Tylenol 325mg Tab) 650 mg PO Q6 PRN PRN Reason: Temperature Last Admin: 04/08/18 03:57 Dose: 650 mg Alprazolam (Xanax) 2 mg PO TID [facility] Last Admin: 04/09/18 19:17 Dose: 2 mg Vancomycin/Sodium Chloride (Vancomycin 1 Gm/Ns 200 Ml) 1 gm in 200 mls @ 133.333 mls/hr IVPB Q8 [facility] PRN Reason: Protocol Stop: 04/13/18 06:01 Last Admin: 04/10/18 06:55 Dose: 133.333 mls/hr Cefepime HCl (Maxipime Iv 2 Gm Premix) 2 gm in 100 mls @ 200 mls/hr IVPB Q8H BHAVNA PRN Reason: Protocol Stop: 04/13/18 16:01 Last Admin: 04/10/18 00:09 Dose: 200 mls/hr Dextrose/Sodium Chloride (Dextrose 5%/0.45% Ns 1000 Ml) 1,000 mls @ 100 mls/hr IV .Q10H BHAVNA Last Admin: 04/10/18 05:59 Dose: 100 mls/hr Levetiracetam (Keppra) 1,000 mg PO BID [facility] Last Admin: 04/09/18 19:18 Dose: 1,000 mg Oxycodone HCl (Oxycodone Immediate Release Tab) 5 mg PO Q8 PRN PRN Reason: Pain, moderate (4-7) Last Admin: 04/10/18 00:22 Dose: 5 mg Oxycodone/Acetaminophen (Percocet 5/325 Mg Tab) 1 tab PO Q8 PRN PRN Reason: Pain, moderate (4-7) Last Admin: 04/10/18 00:21 Dose: 1 tab Pantoprazole Sodium (Protonix Ec Tab) 40 mg PO DAILY [facility] Last Admin: 04/09/18 10:09 Dose: 40 mg Phenytoin Sodium (Dilantin) 200 mg PO BID [facility] Last Admin: 04/09/18 19:19 Dose: 200 mg Quetiapine Fumarate (Seroquel) 400 mg PO BID [facility] Last Admin: 04/09/18 19:18 Dose: 400 mg Saccharomyces Boulardii (Florastor) 250 mg PO BID [facility] Last Admin: 04/09/18 19:18 Dose: 250 mg Trazodone HCl (Desyrel) 150 mg PO HS [facility] Last Admin: 04/09/18 21:48 Dose: 150 mg Zolpidem Tartrate (Ambien) 5 mg PO HS PRN PRN Reason: Insomnia Last Admin: 04/09/18 21:47 Dose: 5 mg - Labs Labs: 04/10/18 06:11 04/10/18 06:11 PT 11.2 SECONDS (9.7-12.2) 04/07/18 20:25 INR 1.0 04/07/18 20:25 APTT 29 SECONDS (21-34) 04/07/18 20:25 - Constitutional Appears: Non-toxic, No Acute Distress - Head Exam Head Exam: NORMAL INSPECTION - Eye Exam Eye Exam: EOMI - ENT Exam ENT Exam: Mucous Membranes Moist - Respiratory Exam Respiratory Exam: Clear to Ausculation Bilateral, NORMAL BREATHING PATTERN. absent: Respiratory Distress - Cardiovascular Exam Cardiovascular Exam: REGULAR RHYTHM, +S1, +S2 - GI/Abdominal Exam GI & Abdominal Exam: Soft, Normal Bowel Sounds. absent: Distended, Firm, Guarding, Tenderness - Extremities Exam Additional comments: dec abduction of the right lower extremity - Back Exam Additional comments: site of surgery clean dry and intact no drainage or signs or cellulitis/ erythema - Neurological Exam Neurological Exam: Alert, Awake, CN II-XII Intact, Oriented x3 - Psychiatric Exam Psychiatric exam: Normal Affect, Normal Mood Assessment and Plan - Assessment and Plan (Free Text) Assessment: CSF leak Patient POD#3 s/p nerve stimulator exchange with Dr. Noel Per attending's discussion with Dr. Noel, patient likely had CSF leak and bed rest recommended ID, Dr. Marr on board Cefepime 2gram IVPB Q8 hours Vancomycin 1gram IVPB Q 8 hours Vanc trough 11.9 Florastor 250mg PO BID Blood cultures 6/2 negative Chronic low back pain Patient has had multiple surgeries in the past Pt takes Percocet 10/325 at home- non-formulary here continue equivalent percocet 5/325 + oxycodone 5mg Epilepsy Keppra 1000mg PO BID Dilantin 200mg PO BID Bipolar disorder Continue home med seroquel 400mg PO BID Anxiety Xanax 2mg PO TID Trazodone 150mg PO HS Insomnia Ambien 5mg PO HS prn Prophylactic measure Protonix 40mg PO daily Chemical anticoagulation and SCDs contraindicated in light of recent spinal surgery Tylenol prn fever Patient is stable for discharge home. He is to follow up with his primary care doctor within one week of discharge for post hospital care. He will be discharged with home physical therapy services. He is also to follow up with his pain management docotor pain medications. He is to follow up with his spinal surgeon as planned. He is to resume all of his home medications and in addition take: 1. Florastor 250mg by mouth twice a day for one month (probiotic and also 2. Keflex 500mg by mouth three times a day for 7 days (antibiotic). These two news medications were sent to the patient's preferred pharmacy, [facility] on [address] He is to return to the emergency room if symptoms return. All instructions explained to the patient and he agrees. All orders and management per Dr. Aly. Eliza Peña DO PGY3
[2018-04-10] MEDS: Pantoprazole 40 mg EC Tab PO SCH (09:39)
[2018-04-10 09:51] VITALS: BP 127/86; PULSE 73; TEMP 98.2; O2SAT 99
[2018-04-10] MEDS: Saccharomyces Boulardi 250 mg Cap PO SCH (10:00)
== END 2018-04-10 15:05 | disposition home or self-care (01) | DRG 92 ==
LOC: C.ER 19:03 → C.9E 21:59 → C.6T 23:12
PROVIDERS: ADMIT Internal Medicine Pulmonary Disease; ATTEND Internal Medicine Pulmonary Disease
DX: G96.0 Cerebrospinal fluid leak (principal); L03.312 Cellulitis of back [any part except buttock and flank]; G89.29 Other chronic pain; G47.00 Insomnia, unspecified; G40.909 Epilepsy, unspecified, not intractable, without status epilepticus; F41.9 Anxiety disorder, unspecified; Z98.1 Arthrodesis status